=== PATIENT | female | born 1935 | race African-American/Black ===

== ENCOUNTER → 2018-05-30 | Day surgery (SDC) | payer MEDICARE, MEDICAID ==
--- NOTE | 2018-05-30 14:33 | RADIOLOGY REPORT (SQ) ---
EXAM DESCRIPTION: PICC INSERTION; U/S GUIDE FOR VASCULAR ACCESS; FLUORO/CV PLACEMENT COMPLETED DATE/TIME: 05/30/2018 2:16 pm REASON FOR STUDY: INFECT/INFLM REACTION DUE TO INT FIX OF SPINE, SUB; IV ABX T84.63XD INFECT/INFLM REACTION DUE TO INT FIX OF SPINE, SUBS COMPARISON: None. FLUOROSCOPY TIME: 1.1 minute. 1 images saved to PACS. TECHNIQUE: Fluoroscopic and ultrasound guided PICC placement. LIMITATIONS: None. PROCEDURE: After written consent and assessment were obtained, the patient was brought into the fluo roscopy room and placed supine on the table. Ultrasound evaluation of potential access sites were per formed. After successfully identifying a patent left basilic vein, the left arm was prepped and drape d in a sterile fashion along with the ultrasound probe. The entry site was anesthetized with 1% lidoc rakan. A 21 gauge 7 cm needle was advanced through the skin and into the basilic vein under live ultra sound guidance. An ultrasound image was saved to PACS confirming access site. A .018 guide wire was then inserted through the needle and into the venous system. The needle was then removed and an 11 b lade scalpel was used to make a 1cm skin incision. A 5 fr peel-away sheath was advanced over the wir e and into the venous system. A measurement was then made using the existing wire and live fluoroscop ic guidance. The wire was then removed and trimmed. The PICC was advanced through the peel-away sheat h and into the venous system. The peel-away sheath was removed and the catheter was adhered to the pa tients arm with a stat lock. The catheter was then aspirated and flushed and a sterile bandage was pl aced over the access site. A fluoroscopic spot image was saved to PACS confirming the catheter tip w ithin the superior vena cava. IMPRESSION: SUCCESSFUL PLACEMENT OF A 5 FR DUAL LUMEN 40 CM PICC IN THE LEFT BASILIC VEIN. COMMENT: Patient medication list reviewed: Yes- Quality ID# 130:Eligible professional attests to doc umenting in the medical record they obtained, updated, or reviewed the patient's current medications. . Quality ID 145: Final reports for procedures using fluoroscopy that document radiation exposure urban ly, or exposure time and number of fluorographic images (if radiation exposure indices are not avail able) Quality ID #76: The patient was prepped and draped using maximum sterile barrier technique including cap, mask, sterile gown, sterile gloves, a large sterile sheet, hand hygiene, and 2% Chlorhexidine fo r cutaneous antisepsis. When ultrasound is used, sterile ultrasound techniques are followed requiring sterile gel and sterile probes. TECHNICAL DOCUMENTATION: JOB ID: [id number] [employer]- All Rights Reserved rev Reading location - IP/workstation name: [email or web address] [id number]
== END ==
LOC: RAD 12:51
PROVIDERS: ATTEND Family Medicine Geriatric Medicine
DX: T84.63XD Infection and inflammatory reaction due to internal fixation device of spine, subsequent encounter (principal); X58.XXXD Exposure to other specified factors, subsequent encounter
CPT/HCPCS: 36569; 77001; 76937; J1642

== ENCOUNTER 2019-01-02 15:36 | Inpatient (IN) | payer MEDICARE, MEDICAID ==
[2019-01-02 18:13] LABS: ABSOLUTE LYMPHOCYTES (AUTO) 0.5 10^3/uL (0.5-4.7); ABSOLUTE MONOCYTES (AUTO) 0.4 10^3/uL (0.1-1.4); ABSOLUTE NEUT (AUTO) 6.8 10^3/uL (1.7-8.2); BASOPHILS % (AUTO) 0.2 % (0-2); EOSINOPHILS % (AUTO) 0.2 % (0-6); HEMATOCRIT 31.4 % (36.0-47.0); HEMOGLOBIN 10.2 g/dL (12.0-15.5); LYMPHOCYTES % (AUTO) 6.4 % (13-45); MEAN CORPUSCULAR HGB CONC 32.4 g/dL (32.0-36.0); MEAN CORPUSCULAR VOLUME 83 fl (80-97); MONOCYTES % (AUTO) 4.9 % (3-13); PLATELET COUNT 171 10^3/uL (150-450); RED BLOOD COUNT 3.77 10^6/uL (3.72-5.28); RED CELL DISTRIBUTION WIDTH 16.2 % (11.5-14.0); SEGMENTED NEUTROPHILS % (AUTO) 88.3 % (42-78); TOTAL CELLS COUNTED % (AUTO) 100 %; WHITE BLOOD COUNT 7.7 10^3/uL (4.0-10.5)
[2019-01-02 18:14] LABS: ALANINE AMINOTRANSFERASE 28 U/L (9-52); ALBUMIN 3.7 g/dL (3.5-5.0); ALKALINE PHOSPHATASE 157 U/L (38-126); ANION GAP 9 (5-19); ASPARTATE AMINO TRANSFERASE 29 U/L (14-36); BILIRUBIN,DIRECT 0.4 mg/dL (0.0-0.4); BILIRUBIN,TOTAL 0.4 mg/dL (0.2-1.3); BLOOD UREA NITROGEN 19 mg/dL (7-20); CALCIUM 10.1 mg/dL (8.4-10.2); CARBON DIOXIDE 28 mmol/L (22-30); CHLORIDE 103 mmol/L (98-107); GLUCOSE 111 mg/dL (75-110); LIPASE 21.3 U/L (23-300); POTASSIUM 4.5 mmol/L (3.6-5.0); TOTAL PROTEIN 7.1 g/dL (6.3-8.2)
[2019-01-02] MEDS ORDERED: LEVOFLOXACIN 500 MG/D5W RTU 500 MG/100 ML RTUPB IV ONE (18:53)
[2019-01-02] MEDS ORDERED: ONDANSETRON HCL INJ/PF 4 MG/2 ML SDV IV ONE (18:55)
[2019-01-02] MEDS ORDERED: ACETAMINOPHEN 325 MG TABLET PO ONE (18:56)
[2019-01-02] MEDS ORDERED: NORMAL SALINE 500 ML IV ONE (18:56)
[2019-01-02] MEDS ORDERED: MORPHINE SULFATE 10 MG/ML INJ IV ONE ×2 (18:56→20:22)
--- NOTE | 2019-01-02 19:01 | ER Document Report ---
ED General - General Chief Complaint: Flank Pain Stated Complaint: FLANK PAIN Time Seen by Provider: 01/02/19 18:30 Mode of Arrival: Medic Information source: Patient Notes: This is an 83-year-old female with a history of atrial fibrillation, hypertension, diabetes who is brought in by EMS from [facility] for left lower quadrant abdominal pain. Patient is not a good historian. She states she has been having pain for the last day. TRAVEL OUTSIDE OF THE [place] IN LAST 30 DAYS: No - HPI Onset: Just prior to arrival Onset/Duration: Gradual Quality of pain: Dull Severity: Moderate Pain Level: 3 Associated symptoms: Fever. denies: Chest pain, Shortness of breath Exacerbated by: Movement Relieved by: Remaining still Similar symptoms previously: Yes Recently seen / treated by doctor: No - Related Data Allergies/Adverse Reactions: No Known Allergies Allergy (Verified 02/02/14 07:22) Past Medical History - General Information source: Patient, Transfer Record - Social History Smoking Status: Never Smoker Cigarette use (# per day): No Chew tobacco use (# tins/day): No Frequency of alcohol use: None Drug Abuse: None Lives with: Family Family History: Reviewed & Not Pertinent Patient has suicidal ideation: No Patient has homicidal ideation: No - Past Medical History Cardiac Medical History: Reports: Hx Atrial Fibrillation, Hx Hypercholesterolemia, Hx Hypertension Denies: Hx Congestive Heart Failure, Hx Coronary Artery Disease, Hx Heart Attack, Hx Peripheral Vascular Disease, Hx Heart Murmur Pulmonary Medical History: Denies: Hx Asthma, Hx Bronchitis, Hx COPD, Hx Pneumonia, Hx Tuberculosis Neurological Medical History: Reports: Hx Seizures. Denies: Hx Cerebrovascular Accident Endocrine Medical History: Reports: Hx Diabetes Mellitus Type 1, Hx Diabetes Mellitus Type 2. Denies: Hx Graves' Disease, Hx Hyperthyroidism, Hx Hypothyroidism Renal/ Medical History: Reports: Hx Kidney Stones. Denies: Hx End Stage Renal Disease, Hx Ovarian Cysts, Hx Peritoneal Dialysis, Hx Pelvic Inflammatory Disease Malignancy Medical History: Reports: Hx Cervical Cancer. Denies: Hx Breast Cancer, Hx Leukemia, Hx Ovarian Cancer GI Medical History: Reports: Hx Gastroesophageal Reflux Disease, Hx Ulcer. Denies: Hx Crohn's Disease, Hx Hiatal Hernia, Hx Irritable Bowel, Hx Liver Failure, Hx Pancreatitis Musculoskeletal Medical History: Reports Hx Arthritis, Denies Hx Fibromyalgia, Denies Hx Multiple Sclerosis, Denies Hx Muscular Dystrophy Psychiatric Medical History: Denies: Hx Dementia Traumatic Medical History: Reports: Hx Fractures - Left Foot Infectious Medical History: Denies: Hx HIV Past Surgical History: Reports: Hx Cholecystectomy, Hx Hysterectomy, Hx Orthopedic Surgery - l2 - s1, left ankle. Denies: Hx Appendectomy, Hx Bowel Surgery, Hx Section, Hx Colostomy, Hx Coronary Artery Bypass Graft, Hx Gastric Bypass Surgery, Hx Herniorrhaphy, Hx Mastectomy, Hx Pacemaker, Hx Tonsillectomy, Hx Tubal Ligation - Immunizations Hx Diphtheria, Pertussis, Tetanus Vaccination: Yes Review of Systems - Review of Systems Constitutional: denies: Chills, Fever EENT: No symptoms reported Respiratory: No symptoms reported Gastrointestinal: Abdominal pain. denies: Abdomen distended, Diarrhea Genitourinary: No symptoms reported Female Genitourinary: No symptoms reported Musculoskeletal: No symptoms reported Skin: No symptoms reported Hematologic/Lymphatic: No symptoms reported Neurological/Psychological: No symptoms reported Physical Exam - Vital signs Vitals: Temp Pulse Resp BP Pulse Ox 98.9 F 106 H 20 143/76 H 94 01/02/19 15:45 01/02/19 15:45 01/02/19 15:45 01/02/19 15:45 01/02/19 15:45 Notes: Physical exam: GENERAL: Patient is alert and answering questions, she is febrile. HEAD: Atraumatic, normocephalic. EYES: Pupils equal round and reactive to light, extraocular movements intact, sclera anicteric, conjunctiva are normal. ENT: TMs normal, nares patent, oropharynx clear without exudates. Moist mucous membranes. NECK: Normal range of motion, supple without obvious mass or JVD. LUNGS: Breath sounds clear to auscultation bilaterally and equal. No wheezes rales or rhonchi. HEART: Regular rate and rhythm without murmurs, rubs or gallops. ABDOMEN: Soft, normoactive bowel sounds. Patient has a left lower quadrant tenderness. no guarding, no rebound. No masses appreciated. Rectal: Brown stool, soft, heme-negative EXTREMITIES: Normal range of motion, no pitting or edema. No clubbing or cyanosis. NEUROLOGICAL: Cranial nerves II through XII grossly intact. Normal speech, moving all extremities. PSYCH: Normal mood, normal affect. SKIN: Warm, Dry, normal turgor, no rashes or lesions noted. Bedside ultrasound: No hydronephrosis on the right. No identified kidney on the left (patient reports having only one kidney). Course - Re-evaluation Re-evalutation: 01/03/19 01:18 Note: Patient has left lower abdominal pain associated with fever (temperature 102). While the CT shows no obvious perforation or abscess, patient remains significantly tender. She is received IV levofloxacin and IV Flagyl for presumptive diverticulitis. Dr. Graves of surgery was consulted and has seen the patient. The plan will be to admit the patient to the hospitalist service. - Vital Signs Vital signs: Temp Pulse Resp BP Pulse Ox 102.0 F H 106 H 20 135/52 H 95 01/02/19 19:02 01/02/19 15:45 01/02/19 19:25 01/02/19 22:00 01/02/19 23:00 - Laboratory Result Diagrams: 01/02/19 17:00 01/02/19 17:00 Laboratory results interpreted by me: 01/02/19 01/02/19 01/02/19 17:00 17:00 18:45 Hgb 10.2 L Hct 31.4 L RDW 16.2 H Seg Neutrophils % 88.3 H Lymphocytes % 6.4 L Glucose 111 H Alkaline Phosphatase 157 H Lipase 21.3 L Urine Protein 30 H Urine Ketones 20 H Urine Ascorbic Acid 40 H Critical Care Note - Critical Care Note Total time excluding time spent on procedures (mins): 60 Discharge - Discharge Clinical Impression: Diverticulitis Condition: Stable Disposition: ADMITTED INPATIENT Admitting Provider: Nilo (Hospitalist) Unit Admitted: Telemetry
[2019-01-02 19:04] LABS: APPEARANCE,URINE SLIGHTLY-CLOUDY; BILIRUBIN,URINE NEGATIVE (NEGATIVE); COLOR,URINE YELLOW; GLUCOSE, URINE NEGATIVE (NEGATIVE); KETONES,URINE 20 mg/dL (NEGATIVE); LEUKOCYTE ESTERASE,URINE NEGATIVE (NEGATIVE); NITRITE,URINE NEGATIVE (NEGATIVE); PROTEIN,URINE 30 mg/dL (NEGATIVE); URINE SPECIFIC GRAVITY 1.019; UROBILINOGEN,URINE NEGATIVE mg/dL (<2.0)
[2019-01-02 19:08] LABS: PROTHROMBIN TIME 13.7 SEC (11.4-15.4)
[2019-01-02] MEDS ORDERED: METRONIDAZOLE 500 MG/NS RTU 500 MG/100 ML RTUPB IV ONE (19:30)
--- NOTE | 2019-01-02 20:52 | EKG REPORT ---
SEVERITY:- BORDERLINE ECG - SINUS RHYTHM BORDERLINE T ABNORMALITIES, ANTERIOR LEADS : Confirmed by: Brown Albright MD 02-Jan-2019 20:51:36
--- NOTE | 2019-01-02 21:27 | RADIOLOGY REPORT (SQ) ---
XR CHEST 1 VIEW HISTORY: Fever. Chest pain. COMPARISON: 03/14/2015 FINDINGS: The heart size is mildly enlarged. No consolidation, pleural effusion, or pneumothorax is seen. Left lung base atelectasis. There are no acute bony findings. IMPRESSION: No evidence of acute cardiopulmonary disease.
--- NOTE | 2019-01-02 22:50 | RADIOLOGY REPORT (SQ) ---
EXAM DESCRIPTION: CT ABDOMEN PELVIS WITH IV CONTRAST COMPLETED DATE/TME: 01/02/2019 00:00 CLINICAL HISTORY: 83 years Female, left abd pain Comparison: None. Technique: IV and oral contrast. Coronal and sagittal reformat. This exam was performed according to our departmental dose-optimization program, which includes automated exposure control, adjustment of the mA and/or kV according to patient size and/or use of iterative reconstruction technique. [facility]: Dose Right [facility]: CareDose [facility]: Dose Right [facility]: Teradose 4D [facility]: RightPath Payments LIMITATIONS: None Findings: 4.8 cm prostate. Left kidney is absent/resected. Atelectasis/scar. Coronary arterial calcification. Atherosclerotic vascular disease. L4-S1 posterior hardware fusion. Left L3 posterior pedicle screw fusion. Bone demineralization. Appendectomy. Uterus not discerned which may indicate prior hysterectomy. Cholecystectomy. 0.9 cm diameter with the common bile duct. Prominence of the intrahepatic ductal system. Stool retention. No ascites. No pneumoperitoneum. No bowel obstruction. No evidence of abdominal aortic aneurysm. Inferior thorax, liver, pancreas, spleen, adrenals, right kidney, gastrointestinal tract, pelvic organs, lymphatics, vasculature, and musculoskeleton appear otherwise unremarkable. IMPRESSION: No acute findings.
--- NOTE | 2019-01-03 00:20 | PDOC CONSULTATION ---
Consultation Consult Date: 01/02/19 Consult reason:: LLQ pains History of Present Illness Admission Date/PCP: COLLINS YUAN MD History of Present Illness: RAHUL SHELBY is a 83 year old female with history of hysterectomy for Ca, 8 back operations, left kidney stone operation, and remote history of diverticulitis started c/o dull LLQ pains radiating to the back past 3-4 weeks. She has afever of 102 in the ED Has constipation and takes laxatives periodically. Her pains are gradually getting worse which prompted her to go to the ED from a [place]. She had a CT scan of abd/pelvis which was red as no acute findings. She is used to taking pain medications for her back and kidney stones.Denies any vomiting but has some nausea. Also has poor appetite. Denies dysuria. Last BM about a week ago. Denies vaginal discharge Past Medical History Cardiac Medical History: Reports: Atrial Fibrillation, Hyperlipidema, Hypertension Denies: Congestive Heart Failure, Coronary Artery Disease, Myocardial Infarction, Peripheral Vascular Disease, Heart Murmur Pulmonary Medical History: Denies: Asthma, Bronchitis, Chronic Obstructive Pulmonary Disease (COPD), Pneumonia, Tuberculosis Neurological Medical History: Reports: Seizures Endocrine Medical History: Reports: Diabetes Mellitus Type 1, Diabetes Mellitus Type 2 Denies: Hyperthyroidism, Hypothyroidism Renal/ Medical History: Denies: End Stage Renal Disease Malignancy Medical History: Reports: Cervical Cancer Denies: Breast Cancer, Leukemia, Ovarian Cancer GI Medical History: Reports: Gastroesophageal Reflux Disease Denies: Crohn's Disease, Hiatal Hernia Musculoskeltal Medical History: Reports: Arthritis Denies: Fibromyalgia Psychiatric Medical History: Denies: Dementia Hematology: Reports: Anemia Denies: Hemophilia, Sickle Cell Disease Infectious Medical History: Denies: HIV Past Surgical History Past Surgical History: Reports: Cholecystectomy, Hysterectomy, Orthopedic Surgery - l2 - s1, left ankle Denies: Amputation, Appendectomy, Section, Colostomy, Coronary Artery Bypass Graft, Gastric Bypass Surgery, Herniorrhaphy, Mastectomy, Pacemaker, Tonsillectomy, Tubal Ligation Social History Smoking Status: Never Smoker Frequency of Alcohol Use: None Hx Recreational Drug Use: Yes Hx Prescription Drug Abuse: No Family History Family History: Reviewed & Not Pertinent Parental Family History Reviewed: Yes Children Family History Reviewed: No Sibling(s) Family History Reviewed.: No Medication/Allergy Home Medications: Atorvastatin Calcium [Lipitor 20 mg Tablet] 20 mg PO QHS 05/27/14 Cholecalciferol (Vitamin D3) [Vitamin D3 400 Unit Tablet] 400 units PO DAILY 02/02/14 Donepezil HCl 5 mg PO QHS 02/02/14 Levothyroxine Sodium [Levoxyl] 37.5 mg PO QAM 02/02/14 Magnesium Oxide [Magnesium] 400 mg PO DAILY 02/02/14 Multivitamin [Animal Shapes Vitamins] 1 tab PO DAILY 02/02/14 Pantoprazole Sodium [Protonix] 40 mg PO DAILY 02/02/14 Pregabalin [Lyrica 100 mg Capsule] 150 mg PO Q8H 02/02/14 Sennosides/Docusate 8.6-50 mg [Senna Plus Tablet] 1 tab PO Q12H 02/02/14 Acetaminophen [Tylenol] 1,000 mg PO Q8 PRN 03/14/15 Amlodipine Besylate [Norvasc 5 mg Tablet] 5 mg PO DAILY 03/14/15 Calcium Carbonate/Vitamin D3 [Calcium 600 + Vit D 400 Tablet] 1 tab PO DAILY 03/14/15 Citalopram Hydrobromide [Celexa 10 mg Tablet] 10 mg PO DAILY 03/14/15 Cyanocobalamin (Vitamin B-12) [Vitamin B-12] 1,000 mcg PO DAILY 03/14/15 Epoetin Roman [Procrit Inj 20,000 Unit/1 ml Vial (Renal)] 40,000 units SUBCUT [id number] 03/14/15 Hydromorphone HCl [Dilaudid 2 mg Tablet] 2 mg PO Q3 PRN 03/14/15 Lactulose 7.5 ml PO DAILY 03/14/15 Menthol [Bengay] 1 dose TOP Q6 PRN 03/14/15 Mometasone Furoate [Nasonex] 50 mcg NS DAILY 03/14/15 Sulfamethoxazole/Trimethoprim [Bactrim Ds Tablet] 1 tab PO Q12 03/14/15 Warfarin Sodium [Coumadin 2.5 mg Tablet] 1 tab PO MOWEFR 03/14/15 Warfarin Sodium [Coumadin 3 mg Tablet] 3 mg PO MOWEFR 03/14/15 Warfarin Sodium [Coumadin 5 mg Tablet] 5 mg PO SUTUTHSA 03/14/15 Ertapenem Sodium [Invanz Inj 1 gm Vial] 1 gm IM DAILY #7 vial 03/21/15 Allergies/Adverse Reactions: No Known Allergies Allergy (Verified 02/02/14 07:22) Review of Systems Constitutional: PRESENT: as per HPI Ears: PRESENT: other - no visual/hearing changes Cardiovascular: PRESENT: other - no chest pains/cough Gastrointestinal: PRESENT: abdominal pain, constipation, nausea Genitourinary: PRESENT: other - no dysuria Musculoskeletal: PRESENT: back pain Neurological: PRESENT: numbness - pains radiating to left leg yesterday Physical Exam Vital Signs: Temp Pulse Resp BP Pulse Ox 102.0 F H 106 H 20 135/52 H 95 01/02/19 19:02 01/02/19 15:45 01/02/19 19:25 01/02/19 22:00 01/02/19 23:00 Intake & Output 01/01/19 01/02/19 01/03/19 06:59 06:59 06:59 Intake Total 700 Balance 700 Weight 90 kg General appearance: PRESENT: severe distress Head exam: PRESENT: atraumatic Eye exam: PRESENT: conjunctiva pink Mouth exam: PRESENT: moist Neck exam: PRESENT: full ROM Respiratory exam: PRESENT: clear to auscultation cristina Cardiovascular exam: PRESENT: RRR Pulses: PRESENT: normal radial pulses Vascular exam: PRESENT: normal capillary refill GI/Abdominal exam: PRESENT: soft, tenderness - LLQ Rectal exam: PRESENT: deferred Musculoskeletal exam: PRESENT: ambulatory - with a cane Neurological exam: PRESENT: alert, oriented to person, oriented to place, oriented to time, oriented to situation Psychiatric exam: PRESENT: appropriate affect Results Laboratory Results: 01/02/19 17:00 01/02/19 17:00 01/02/19 01/02/19 01/02/19 17:00 17:00 18:45 WBC 7.7 RBC 3.77 Hgb 10.2 L Hct 31.4 L MCV 83 MCH 27.0 MCHC 32.4 RDW 16.2 H Plt Count 171 Seg Neutrophils % 88.3 H Lymphocytes % 6.4 L Monocytes % 4.9 Eosinophils % 0.2 Basophils % 0.2 Absolute Neutrophils 6.8 Absolute Lymphocytes 0.5 Absolute Monocytes 0.4 Absolute Eosinophils 0.0 Absolute Basophils 0.0 Sodium 140.0 Potassium 4.5 Chloride 103 Carbon Dioxide 28 Anion Gap 9 BUN 19 Creatinine 0.68 Est GFR ( Amer) > 60 Est GFR (Non-Af Amer) > 60 Glucose 111 H Calcium 10.1 Total Bilirubin 0.4 AST 29 ALT 28 Alkaline Phosphatase 157 H Total Protein 7.1 Albumin 3.7 Lipase 21.3 L Urine Color YELLOW Urine Appearance SLIGHTLY-CLOUDY Urine pH 5.0 Ur Specific [place] 1.019 Urine Protein 30 H Urine Glucose (UA) NEGATIVE Urine Ketones 20 H Urine Blood NEGATIVE Urine Nitrite NEGATIVE Ur Leukocyte Esterase NEGATIVE Urine WBC (Auto) 5 Urine RBC (Auto) 1 Impressions: Abdomen/Pelvis CT 01/02/19 00:00 IMPRESSION: No acute findings. Chest X-Ray 01/02/19 20:16 IMPRESSION: No evidence of acute cardiopulmonary disease. Assessment & Plan - Diagnosis (1) Left Lower quadant pains radiating to th Is this a current diagnosis for this admission?: Yes - Time Time Spent: 30 to 50 Minutes - Inpatient Certification Medical Necessity: Need for Pain Control, Need for IV Antibiotics - Plan Summary Plan Summary: 83 yo female with LLQ pains radiating to the back past 3 weeks and getting worse and tonight associated with fever of 102. Has constipation. Claims had remote history of diverticulitis -32 years ago and treated by PMD with antibiotics. Had about 8 back operations, hysterectomy for Ca and left flank operations x2 for kidney stones. She has been on chronic pain medications with Tramadol and Oxycodone for her back prescribed by her PMD. She is tender in the LLQ but no acute changes on CT scan. Has a very small incisional/umbilical hernia that is non tender..She has a fever with a left shift on WBC. Impression: Can't definitely R/O acute diverticulitis despite normal CT scan. I think there is some pain medication gain at this point but with the fever and slight left shift on her WBC would give IV antibiotics for a likely starting diverticulitis. Will be available for any questions.
[2019-01-03] MEDS ORDERED: IPRATROPIUM/ALBUTEROL 0.5-2.5 MG/3 ML AMPUL NEB PRN (00:40)
[2019-01-03] MEDS ORDERED: MAG HYDROX/AL HYDROX/SIMETH SUSP 30 ML UDCUP PO PRN (00:40)
[2019-01-03] MEDS ORDERED: LACTULOSE SYRUP 20 GM/30 ML UDCUP PO ONE (00:40)
[2019-01-03] MEDS ORDERED: NORMAL SALINE 1000 ML 1,000 ML IV SCH (00:45)
[2019-01-03] MEDS: ACETAMINOPHEN 325 MG TABLET PO PRN ×5 (02:41→20:11)
--- NOTE | 2019-01-03 05:29 | PDOC H&P ---
History of Present Illness Admission Date/PCP: 01/03/19 00:48 COLLINS YUAN MD Patient complains of: Left-sided abdominal pain History of Present Illness: RAHUL SHELBY is a 83 year old female custodial resident with a past medical history of dementia, atrial fibrillation, hypertension, diabetes and opiate dependent chronic pain with constipation. Patient is a very poor historian but admits to dull left lower quadrant pain for at least 24 hours associated with constipation. In the emergency room she is found to have a fever of 102 without leukocytosis or acidosis, CT abdomen suggestive of constipation without obstruction, colitis or diverticulitis. She started on empiric antibiotics for diverticulitis and referred to the hospitalist for admission. Patient is unable to provide meaningful history but is socially appropriate. Past Medical History Cardiac Medical History: Reports: Atrial Fibrillation, Hyperlipidema, Hypertension Denies: Congestive Heart Failure, Coronary Artery Disease, Myocardial In farction, Peripheral Vascular Disease, Heart Murmur Pulmonary Medical History: Denies: Asthma, Bronchitis, Chronic Obstructive Pulmonary Disease (COPD), Pneumonia, Tuberculosis Neurological Medical History: Reports: Seizures Endocrine Medical History: Reports: Diabetes Mellitus Type 1, Diabetes Mellitus Type 2 Denies: Hyperthyroidism, Hypothyroidism Renal/ Medical History: Denies: End Stage Renal Disease Malignancy Medical History: Reports: Cervical Cancer Denies: Breast Cancer, Leukemia, Ovarian Cancer GI Medical History: Reports: Gastroesophageal Reflux Disease Denies: Crohn's Disease, Hiatal Hernia Musculoskeltal Medical History: Reports: Arthritis Denies: Fibromyalgia Psychiatric Medical History: Denies: Dementia Hematology: Reports: Anemia Denies: Hemophilia, Sickle Cell Disease Infectious Medical History: Denies: HIV Past Surgical History Past Surgical History: Reports: Cholecystectomy, Hysterectomy, Orthopedic Surgery - l2 - s1, left ankle Denies: Amputation, Appendectomy, Section, Colostomy, Coronary Artery Bypass Graft, Gastric Bypass Surgery, Herniorrhaphy, Mastectomy, Pacemaker, Tonsillectomy, Tubal Ligation Social History Information Source: Patient, Emergency Med Personnel, [facility] Records Lives with: Family Smoking Status: Never Smoker Frequency of Alcohol Use: None Hx Recreational Drug Use: Yes Hx Prescription Drug Abuse: No - Advance Directive Resuscitation Status: Full Code Family History Family History: Other - Unobtainable Parental Family History Reviewed: No - Unobtainable Children Family History Reviewed: No - Unobtainable Sibling(s) Family History Reviewed.: No - Unobtainable Medication/Allergy Home Medications: Atorvastatin Calcium [Lipitor 20 mg Tablet] 20 mg PO QHS 02/02/14 Cholecalciferol (Vitamin D3) [Vitamin D3 400 Unit Tablet] 400 units PO DAILY 02/02/14 Donepezil HCl 5 mg PO QHS 02/02/14 Levothyroxine Sodium [Levoxyl] 37.5 mg PO QAM 02/02/14 Magnesium Oxide [Magnesium] 400 mg PO DAILY 02/02/14 Multivitamin [Animal Shapes Vitamins] 1 tab PO DAILY 02/02/14 Pantoprazole Sodium [Protonix] 40 mg PO DAILY 02/02/14 Pregabalin [Lyrica 100 mg Capsule] 150 mg PO Q8H 02/02/14 Sennosides/Docusate 8.6-50 mg [Senna Plus Tablet] 1 tab PO Q12H 02/02/14 Acetaminophen [Tylenol] 1,000 mg PO Q8 PRN 03/14/15 Amlodipine Besylate [Norvasc 5 mg Tablet] 5 mg PO DAILY 03/14/15 Calcium Carbonate/Vitamin D3 [Calcium 600 + Vit D 400 Tablet] 1 tab PO DAILY 03/14/15 Citalopram Hydrobromide [Celexa 10 mg Tablet] 10 mg PO DAILY 03/14/15 Cyanocobalamin (Vitamin B-12) [Vitamin B-12] 1,000 mcg PO DAILY 03/14/15 Epoetin Roman [Procrit Inj 20,000 Unit/1 ml Vial (Renal)] 40,000 units SUBCUT [id number] 03/14/15 Hydromorphone HCl [Dilaudid 2 mg Tablet] 2 mg PO Q3 PRN 03/14/15 Lactulose 7.5 ml PO DAILY 03/14/15 Menthol [Bengay] 1 dose TOP Q6 PRN 03/14/15 Mometasone Furoate [Nasonex] 50 mcg NS DAILY 03/14/15 Sulfamethoxazole/Trimethoprim [Bactrim Ds Tablet] 1 tab PO Q12 03/14/15 Warfarin Sodium [Coumadin 2.5 mg Tablet] 1 tab PO MOWEFR 03/14/15 Warfarin Sodium [Coumadin 3 mg Tablet] 3 mg PO MOWEFR 03/14/15 Warfarin Sodium [Coumadin 5 mg Tablet] 5 mg PO SUTUTHSA 03/14/15 Ertapenem Sodium [Invanz Inj 1 gm Vial] 1 gm IM DAILY #7 vial 03/21/15 Allergies/Adverse Reactions: No Known Allergies Allergy (Verified 02/02/14 07:22) Review of Systems ROS unobtainable: Due to mental status - Dementia Physical Exam Vital Signs: Temp Pulse Resp BP Pulse Ox 98.9 F 83 20 132/55 H 96 01/03/19 01:00 01/03/19 01:43 01/03/19 01:00 01/03/19 01:28 01/03/19 01:28 Intake & Output 01/01/19 01/02/19 01/03/19 11:59 11:59 11:59 Intake Total 700 Balance 700 Weight 90 kg General appearance: PRESENT: cooperative, mild distress, obese. ABSENT: hard of hearing Head exam: PRESENT: atraumatic, normocephalic Eye exam: PRESENT: conjunctiva pink, EOMI, PERRLA. ABSENT: scleral icterus Ear exam: PRESENT: normal external ear exam Mouth exam: PRESENT: moist, tongue midline Neck exam: ABSENT: carotid bruit, JVD, lymphadenopathy, thyromegaly Respiratory exam: PRESENT: clear to auscultation cristina. ABSENT: rales, rhonchi, wheezes Cardiovascular exam: PRESENT: irregular rhythm. ABSENT: diastolic murmur, rubs, systolic murmur Pulses: PRESENT: normal dorsalis pedis pul Vascular exam: PRESENT: normal capillary refill GI/Abdominal exam: PRESENT: diminished bowel sounds, distended, hypoactive bowel sounds, soft, tenderness. ABSENT: ascites, firm, guarding, hernia, Shaw's sign, normal bowel sounds, organolmegaly, rebound Rectal exam: PRESENT: deferred Extremities exam: PRESENT: full ROM. ABSENT: calf tenderness, clubbing, pedal edema Neurological exam: PRESENT: alert, awake, oriented to person, oriented to place, oriented to time, oriented to situation, CN II-XII grossly intact. ABSENT: motor sensory deficit Psychiatric exam: PRESENT: appropriate affect, normal mood. ABSENT: homicidal ideation, suicidal ideation Skin exam: PRESENT: dry, intact, warm. ABSENT: cyanosis, rash Results Laboratory Results: 01/02/19 17:00 01/02/19 17:00 01/02/19 01/02/19 01/02/19 17:00 17:00 18:45 WBC 7.7 RBC 3.77 Hgb 10.2 L Hct 31.4 L MCV 83 MCH 27.0 MCHC 32.4 RDW 16.2 H Plt Count 171 Seg Neutrophils % 88.3 H Lymphocytes % 6.4 L Monocytes % 4.9 Eosinophils % 0.2 Basophils % 0.2 Absolute Neutrophils 6.8 Absolute Lymphocytes 0.5 Absolute Monocytes 0.4 Absolute Eosinophils 0.0 Absolute Basophils 0.0 Sodium 140.0 Potassium 4.5 Chloride 103 Carbon Dioxide 28 Anion Gap 9 BUN 19 Creatinine 0.68 Est GFR ( Amer) > 60 Est GFR (Non-Af Amer) > 60 Glucose 111 H Calcium 10.1 Total Bilirubin 0.4 AST 29 ALT 28 Alkaline Phosphatase 157 H Total Protein 7.1 Albumin 3.7 Lipase 21.3 L Urine Color YELLOW Urine Appearance SLIGHTLY-CLOUDY Urine pH 5.0 Ur Specific [place] 1.019 Urine Protein 30 H Urine Glucose (UA) NEGATIVE Urine Ketones 20 H Urine Blood NEGATIVE Urine Nitrite NEGATIVE Ur Leukocyte Esterase NEGATIVE Urine WBC (Auto) 5 Urine RBC (Auto) 1 Impressions: Abdomen/Pelvis CT 01/02/19 00:00 IMPRESSION: No acute findings. Chest X-Ray 01/02/19 20:16 IMPRESSION: No evidence of acute cardiopulmonary disease. Assessment and Plan - Diagnosis (1) Left Lower quadant pains radiating to th Is this a current diagnosis for this admission?: Yes Plan: Complicated by diabetes, fever, constipation, dementia and without clear source. Will treat empirically for diverticulitis. Follow-up CBC (2) Diverticulitis Is this a current diagnosis for this admission?: Yes Plan: Most likely explanation for fever and left lower quadrant pain with constipa tion. Trial of clear liquids with Flagyl and Levaquin. Follow-up CBC (3) Atrial fibrillation Is this a current diagnosis for this admission?: Yes Plan: Rate controlled continue outpatient regiment - Time Time Spent with patient: 35 or more minutes - Inpatient Certification Medical Necessity: Need Close Monitoring Due to Risk of Patient Decompensation
[2019-01-03] MEDS: HEPARIN SOD (PORCINE) 5,000 UNIT/ML 1 ML SYRINGE SUBCUT SCH ×3 (05:35→21:27)
[2019-01-03] MEDS ORDERED: METRONIDAZOLE 500 MG TABLET ONE (05:56)
[2019-01-03] MEDS: METRONIDAZOLE 500 MG TABLET PO SCH ×3 (06:02→17:12)
[2019-01-03] MEDS: NORMAL SALINE 1000 ML 1,000 ML IV PRN ×2 (06:02→10:38)
--- NOTE | 2019-01-03 17:59 | Progress Note ---
Provider Note Provider Note: RAHUL SHELBY is a 83 year old female jail resident with a past medical history of dementia, atrial fibrillation, hypertension, diabetes and opiate dependent chronic pain with constipation who was admitted early this morning by the Shell Reprint Operator for diverticulitis. Overnight events, vital signs, laboratory and imaging results reviewed. Agree with the plan of care as established by the previous provider. I did speak with the patient's daughter by phone, Ms. Julio ([phone]); she appreciates the care the patient has received thus far and confirms that her mother is a full code. Continue empiric IV Flagyl and Levaquin for treatment of diverticulitis. Continue gentle IV fluids, antiemetics and analgesics as needed. I resume the patient's home dose metoprolol. Lactulose for constipation. Subcu heparin for DVT prophylaxis.
[2019-01-03] MEDS ORDERED: LEVOFLOXACIN 750 MG/D5W RTU 750 MG/150 ML RTUPB IV SCH (18:00)
[2019-01-03] MEDS: LACTULOSE SYRUP 20 GM/30 ML UDCUP PO SCH (21:27)
[2019-01-04] MEDS: ACETAMINOPHEN 325 MG TABLET PO PRN ×5 (00:13→20:31)
[2019-01-04] MEDS: METRONIDAZOLE 500 MG TABLET PO SCH ×4 (00:13→17:10)
[2019-01-04] MEDS: HEPARIN SOD (PORCINE) 5,000 UNIT/ML 1 ML SYRINGE SUBCUT SCH ×3 (05:11→21:48)
[2019-01-04 06:07] LABS: ABSOLUTE LYMPHOCYTES (AUTO) 0.6 10^3/uL (0.5-4.7); ABSOLUTE MONOCYTES (AUTO) 0.7 10^3/uL (0.1-1.4); ABSOLUTE NEUT (AUTO) 3.8 10^3/uL (1.7-8.2); BASOPHILS % (AUTO) 0.3 % (0-2); EOSINOPHILS % (AUTO) 0.5 % (0-6); HEMATOCRIT 28.2 % (36.0-47.0); HEMOGLOBIN 9.3 g/dL (12.0-15.5); LYMPHOCYTES % (AUTO) 12.6 % (13-45); MEAN CORPUSCULAR HEMOGLOBIN 27.3 pg (27.0-33.4); MEAN CORPUSCULAR HGB CONC 33.1 g/dL (32.0-36.0); MEAN CORPUSCULAR VOLUME 82 fl (80-97); MONOCYTES % (AUTO) 12.8 % (3-13); PLATELET COUNT 153 10^3/uL (150-450); RED BLOOD COUNT 3.43 10^6/uL (3.72-5.28); SEGMENTED NEUTROPHILS % (AUTO) 73.8 % (42-78); TOTAL CELLS COUNTED % (AUTO) 100 %; WHITE BLOOD COUNT 5.2 10^3/uL (4.0-10.5)
[2019-01-04 06:23] LABS: ANION GAP 12 (5-19); BLOOD UREA NITROGEN 12 mg/dL (7-20); CALCIUM 9.7 mg/dL (8.4-10.2); CARBON DIOXIDE 23 mmol/L (22-30); CHLORIDE 105 mmol/L (98-107); GLUCOSE 94 mg/dL (75-110); SODIUM 140.2 mmol/L (137-145)
[2019-01-04] MEDS: METOPROLOL SUCCINATE 25 MG TAB.SR.24H PO SCH (09:52)
--- NOTE | 2019-01-04 11:57 | PDOC PROGRESS REPORT ---
Subjective Progress Note for:: 01/04/19 Subjective:: RAHUL SHELBY is a 83 year old female assisted resident with a past medical history of dementia, atrial fibrillation, hypertension, diabetes and opiate dependent chronic pain with constipation who was admitted early this morning by the Refinery Superintendent for diverticulitis. The patient was seen on morning rounds. She was found resting in bed comfortably. She was oriented to self, place, socially and conversationally appropriate. She reports that her only pain at present is left pelvic, hip, lower back pain that she relates to a fall a few months ago. She states that the pain is progressively worsened since that time. She cannot recall if she has had imaging studies done. Otherwise she denies fever, chills, chest pain, palpitations, dyspnea, orthopnea, cough, abdominal pain, nausea and vomiting. She requests increased pain medications but otherwise has no questions or concerns at this time. No concerns per nursing. Reason For Visit: DIVERTICULITIS ABD PAIN Physical Exam Vital Signs: Temp Pulse Resp BP Pulse Ox 98.8 F 81 14 150/60 H 93 01/04/19 07:46 01/04/19 09:52 01/04/19 09:52 01/04/19 07:46 01/04/19 09:52 Intake & Output 01/03/19 01/04/19 01/05/19 06:59 06:59 06:59 Intake Total 700 2538 Output Total 2 Balance 700 2536 Weight 85.8 kg 86 kg General appearance: PRESENT: no acute distress, obese, well-developed, well- nourished Head exam: PRESENT: atraumatic, normocephalic Eye exam: PRESENT: conjunctiva pink, EOMI, PERRLA. ABSENT: scleral icterus Mouth exam: PRESENT: moist, tongue midline Neck exam: ABSENT: carotid bruit, JVD, lymphadenopathy, thyromegaly Respiratory exam: PRESENT: clear to auscultation cristina, decreased breath sounds - Bibasilar, symmetrical, unlabored. ABSENT: rales, rhonchi, wheezes Cardiovascular exam: PRESENT: irregular rhythm, +S1, +S2. ABSENT: diastolic murmur, rubs, systolic murmur Pulses: PRESENT: normal dorsalis pedis pul Vascular exam: PRESENT: normal capillary refill GI/Abdominal exam: PRESENT: normal bowel sounds, soft. ABSENT: distended, guarding, mass, organolmegaly, rebound, tenderness Rectal exam: PRESENT: deferred Extremities exam: PRESENT: tenderness - Left hip and lower back discomfort. ABSENT: calf tenderness, clubbing, pedal edema Neurological exam: PRESENT: alert, awake, oriented to person, oriented to place, CN II-XII grossly intact, other - Forgetful, socially appropriate. ABSENT: oriented to time, oriented to situation, motor sensory deficit Psychiatric exam: PRESENT: appropriate affect, normal mood. ABSENT: homicidal ideation, suicidal ideation Skin exam: PRESENT: dry, intact, warm. ABSENT: cyanosis, rash Results Laboratory Results: 01/04/19 05:14 01/04/19 05:14 01/04/19 01/04/19 05:14 05:14 WBC 5.2 RBC 3.43 L Hgb 9.3 L Hct 28.2 L MCV 82 MCH 27.3 MCHC 33.1 RDW 16.0 H Plt Count 153 Seg Neutrophils % 73.8 Lymphocytes % 12.6 L Monocytes % 12.8 Eosinophils % 0.5 Basophils % 0.3 Absolute Neutrophils 3.8 Absolute Lymphocytes 0.6 Absolute Monocytes 0.7 Absolute Eosinophils 0.0 Absolute Basophils 0.0 Sodium 140.2 Potassium 4.0 Chloride 105 Carbon Dioxide 23 Anion Gap 12 BUN 12 Creatinine 0.57 Est GFR ( Amer) > 60 Est GFR (Non-Af Amer) > 60 Glucose 94 Calcium 9.7 Impressions: Abdomen/Pelvis CT 01/02/19 00:00 IMPRESSION: No acute findings. Chest X-Ray 01/02/19 20:16 IMPRESSION: No evidence of acute cardiopulmonary disease. Assessment and Plan - Diagnosis (1) Diverticulitis Is this a current diagnosis for this admission?: Yes Plan: The patient is admitted to the medical floor on continuous cardiac telemetry. She provided gentle IV fluids. On a clear liquid diet; advance as tolerated. Empirically placed on p.o. Cipro and flagyl. Antiemetics and anagesics as needed. (2) Left Lower quadant pains radiating to th Is this a current diagnosis for this admission?: Yes Plan: Complicated by diabetes, fever, constipation, dementia and without clear source. Will treat empirically for diverticulitis. Manage constipation. Evaluate pelvic/hip pain from fall several weeks ago. (3) Atrial fibrillation Is this a current diagnosis for this admission?: Yes Plan: Rate controlled continue outpatient regiment. Patient is too high of risk for chronic anticoagulation. Telemetry monitoring. (4) Hip pain Qualifiers: Laterality: left Qualified Code(s): M25.552 - Pain in left hip Is this a current diagnosis for this admission?: Yes Plan: Secondary to fall from a few weeks ago; patient is unclear on exact date (told cedric jennings 2-3 weeks, told me about 5). Can't recall if she had imaging studies done. CT ABD/Pelvis did not reveal abnormal findings. Will obtain lumbar, pelvic, and left hip xray. Lidoderm patches and tramadol for pain. Avoid narcotics secondary to constipation. (5) Constipation Is this a current diagnosis for this admission?: Yes Plan: Appears to be chronic in nature; likely opiate induced. She uses twice daily MiraLAX, twice daily senna, for management as an outpatient. We will resume her home medication regiment in addition to lactulose nightly as needed. - Time Time Spent with patient: 25-34 minutes Medications reviewed and adjusted accordingly: Yes Anticipated discharge: SNF Within: within 48 hours
[2019-01-04] MEDS: TRAMADOL HCL 50 MG TABLET PO PRN ×3 (12:08→21:44)
--- NOTE | 2019-01-04 14:14 | RADIOLOGY REPORT (SQ) ---
EXAM DESCRIPTION: L SPINE WHOLE COMPLETED DATE/TIME: 01/04/2019 2:00 pm REASON FOR STUDY: low back pain s/p fall COMPARISON: None. NUMBER OF VIEWS: Five views including obliques. TECHNIQUE: AP, lateral, oblique, and sacral radiographic images acquired of the lumbar spine. LIMITATIONS: None. FINDINGS: MINERALIZATION: Normal. SEGMENTATION: Normal. No transitional anatomy. ALIGNMENT: Normal. VERTEBRAE: Maintained height. No fracture or worrisome bone lesion. DISCS: Preserved height. No significant osteophytes or end plate irregularity. POSTERIOR ELEMENTS: Posterior fusion. Laminectomy. HARDWARE: Posterior hardware. PARASPINAL SOFT TISSUES: Normal. PELVIS: Intact as visualized. No fractures or worrisome bone lesions. SI joints intact. OTHER: No other significant finding. IMPRESSION: SURGICAL CHANGES WITH POSTERIOR FUSION, LAMINECTOMY, AND HARDWARE. NO ACUTE FINDINGS. TECHNICAL DOCUMENTATION: JOB ID: [id number] [employer]- All Rights Reserved Reading location - IP/workstation name: [email or web address]
--- NOTE | 2019-01-04 14:17 | RADIOLOGY REPORT (SQ) ---
EXAM DESCRIPTION: HIP LEFT AP/LATERAL COMPLETED DATE/TIME: 01/04/2019 2:00 pm REASON FOR STUDY: pelvic/lt hip pain s/p fall COMPARISON: None. NUMBER OF VIEWS: Two views. TECHNIQUE: AP pelvis and additional frog-leg view of the left hip. LIMITATIONS: None. FINDINGS: MINERALIZATION: Normal. LEFT HIP: No fracture or dislocation. No worrisome bone lesions. RIGHT HIP: No fracture or dislocation. No worrisome bone lesions. PUBIS AND ISCHIUM: No fracture. PELVIS: No fracture. SACRUM: No fracture or dislocation. No worrisome bone lesions. LOWER LUMBAR SPINE: Surgical changes and hardware. SOFT TISSUES: No findings. OTHER: No other significant finding. IMPRESSION: NEGATIVE STUDY OF THE LEFT HIP AND PELVIS. NO RADIOGRAPHIC EVIDENCE OF ACUTE INJURY. TECHNICAL DOCUMENTATION: JOB ID: [id number] [employer]- All Rights Reserved Reading location - IP/workstation name: [email or web address]
[2019-01-04] MEDS: GABAPENTIN 100 MG CAPSULE PO SCH ×2 (14:20→21:47)
[2019-01-04] MEDS: POLYETHYLENE GLYCOL 3350 POWDER 17 GM/1 PACKET PO SCH (17:10)
[2019-01-04] MEDS: CIPROFLOXACIN HCL 750 MG TABLET PO SCH (21:45)
[2019-01-04] MEDS: ATORVASTATIN CALCIUM 20 MG TABLET PO SCH (21:46)
[2019-01-04] MEDS: TAMSULOSIN HCL 0.4 MG CAP.SR.24H PO SCH (21:46)
[2019-01-04] MEDS: LACTULOSE SYRUP 20 GM/30 ML UDCUP PO SCH (21:47)
[2019-01-05] MEDS: ACETAMINOPHEN 325 MG TABLET PO PRN (00:41)
[2019-01-05] MEDS: METRONIDAZOLE 500 MG TABLET PO SCH ×5 (00:42→23:47)
[2019-01-05] MEDS: TRAMADOL HCL 50 MG TABLET PO PRN ×4 (03:33→23:46)
[2019-01-05 04:25] LABS: HEMATOCRIT 28.8 % (36.0-47.0); HEMOGLOBIN 9.5 g/dL (12.0-15.5); MEAN CORPUSCULAR HGB CONC 32.9 g/dL (32.0-36.0); MEAN CORPUSCULAR VOLUME 82 fl (80-97); PLATELET COUNT 171 10^3/uL (150-450); RED BLOOD COUNT 3.51 10^6/uL (3.72-5.28); RED CELL DISTRIBUTION WIDTH 16.1 % (11.5-14.0)
[2019-01-05] MEDS: GABAPENTIN 100 MG CAPSULE PO SCH ×3 (05:44→21:11)
[2019-01-05] MEDS: PANTOPRAZOLE SODIUM 40 MG TABLET.DR PO SCH (05:45)
[2019-01-05] MEDS: HEPARIN SOD (PORCINE) 5,000 UNIT/ML 1 ML SYRINGE SUBCUT SCH ×3 (05:45→21:10)
[2019-01-05] MEDS: POLYETHYLENE GLYCOL 3350 POWDER 17 GM/1 PACKET PO SCH ×3 (09:15→17:28)
[2019-01-05] MEDS: DULOXETINE HCL 30 MG CAPSULE.DR PO SCH (09:19)
[2019-01-05] MEDS: FERROUS SULFATE 325 MG TABLET PO SCH (09:20)
[2019-01-05] MEDS: METOPROLOL SUCCINATE 25 MG TAB.SR.24H PO SCH (09:20)
[2019-01-05] MEDS: CIPROFLOXACIN HCL 750 MG TABLET PO SCH ×2 (09:22→17:25)
--- NOTE | 2019-01-05 12:49 | PDOC TRANSFER SUMMARY ---
Addendum entered and electronically signed by MINDA KLEIN NP-C 01/16/19 21:16: Provider Note Provider Note: Addendum: Patient has a Hx of PAF; rate controlled on metoprolol. Patient noted to be in NSR while admitted. Addendum entered and electronically signed by BETZY HERNANDEZ NP 01/09/19 14:40: Provider Note Provider Note: REPEAT IMAGING OF ABDOMEN DID NOT SHOW ANY SIGNIFICANT PATHOLOGY OTHER THAN MODERATE STOOL BURDEN AND COLONIC GAS. THE PATIENT WAS STARTED ON SCHEDULED SIMETHICONE WELL A ROBUST BOWEL REGIMEN, WHICH HELPS ALLEVIATE HER ABDOMINAL PAIN. ONCE THE PATIENT WAS ABLE TO MOVE HER BOWELS, SHE WAS ABLE TO ADVANCE HER DIET AND TOLERATE SOLID FOODS. UNFORTUNATELY, THE PATIENT EXPERIENCES CHRONIC HIP PAIN. SHE WOULD GREATLY BENEFIT FROM PHYSICAL THERAPY UPON RETURNING TO [facility]. Original Note: General - Admit/Disc Date/PCP Admission Date/Primary Care Provider: 01/03/19 00:48 COLLINS YUAN MD Discharge Date: 01/05/19 - Discharge Diagnosis (1) Diverticulitis Is this a current diagnosis for this admission?: Yes Summary: WBCs remain normal, patient has been afebrile, CT of the abdomen and pelvis was negative for acute processes but could not definitively rule out diverticulitis. The patient was admitted to the medical floor on continuous cardiac telemetry and provided gentle IV fluids. She was empirically placed on p.o. Cipro and flagyl. Surgery was consulted; recommended empiric treatment for diverticulitis and management of constipation. She was placed on a clear liquid diet which was advanced as tolerated. She was provided antiemetics and non-opiate analgesics as needed. At time of discharge, the patient is in stable condition and consuming 100% of her full liquid diet. Recommend continuing to advance slowly as tolerated. Patient's discomfort has been adequately controlled with combination of Tylenol and tramadol. She is discharged to SNF where she is an established resident. Advised that she follow-up with her primary care provider within 1 week. Continue bowel regimen to prevent constipation. Complete her antibiotic therapy. Return to the emergency department as needed for concerning symptoms. (2) Left Lower quadant pains radiating to th Is this a current diagnosis for this admission?: Yes Summary: As above. (3) Atrial fibrillation Is this a current diagnosis for this admission?: Yes Summary: Patient is rate controlled on her outpatient regimen. Not a candidate for chronic anticoagulation due to risk of hemorrhage. (4) Hip pain Is this a current diagnosis for this admission?: Yes Summary: Secondary to fall from a few weeks ago; patient is unclear on exact date (told nurse 2-3 weeks, told me about 5). Can't recall if she had imaging studies done. CT ABD/Pelvis did not reveal abnormal findings. Lumbar, pelvis, left hip x-ray were negative for acute findings; do demonstrate chronic orthopedic changes. Possibly the source of the patient's discomfort. She was provided Lidoderm patches, Tylenol and tramadol for pain. Recommend avoiding narcotics secondary to constipation. (5) Constipation Is this a current diagnosis for this admission?: Yes Summary: Appears to be chronic in nature; likely opiate induced. I have continued her outpatient regiment of twice daily MiraLAX, twice daily senna. I have also added lactulose nightly as needed. - Additional Information Resuscitation Status: Full Code Discharge Diet: As Tolerated, Regular Discharge Activity: Activity As Tolerated, Balance Activity w/Rest, Slowly Increase Activity, Supervised Activity Prescriptions: Ciprofloxacin HCl [Cipro 750 mg Tablet] 750 mg PO Q12A #10 tablet Lactulose [Cephulac Syrup 20 gm/30 ml Udcup] 20 gm PO QHS #10 udc Metronidazole [Flagyl 500 mg Tablet] 500 mg PO Q6 #15 tablet Home Medications: Acetaminophen [Tylenol 325 mg Tablet] 650 mg PO Q6HP PRN 01/03/19 Acetaminophen with Codeine [Tylenol #3 Tablet] 1 each PO Q6HP PRN 01/03/19 Ascorbic Acid [Vitamin C] 500 mg PO DAILY 01/03/19 Atorvastatin Calcium [Lipitor 20 mg Tablet] 20 mg PO QHS 01/03/19 Duloxetine HCl [Cymbalta] 60 mg PO DAILY 01/03/19 Ferrous Sulfate [Feosol 325 mg Tablet] 325 mg PO DAILY 01/03/19 Gabapentin [Neurontin 100 mg Capsule] 100 mg PO Q8 01/03/19 Metoprolol Succinate [Kapspargo Sprinkle] 25 mg PO DAILY 01/03/19 Oxycodone HCl [Oxy-Ir 5 mg Tablet] 5 mg PO Q6HP PRN 01/03/19 Pantoprazole Sodium [Protonix [address] Tablet] 40 mg PO Q6AM 01/03/19 Polyethylene Glycol 3350 [Miralax Powder 17 gm/Packet] 1 packet PO BID 01/03/19 Sennosides [Senna] 17.2 mg PO BID 01/03/19 Tamsulosin HCl [Flomax 0.4 mg Cap.sr] 0.4 mg PO QHS 01/03/19 Acetaminophen [Tylenol 325 mg Tablet] 650 mg PO Q4HP PRN tablet 01/05/19 Ciprofloxacin HCl [Cipro 750 mg Tablet] 750 mg PO Q12A #10 tablet 01/05/19 Lactulose [Cephulac Syrup 20 gm/30 ml Udcup] 20 gm PO QHS #10 udc 01/05/19 Metronidazole [Flagyl 500 mg Tablet] 500 mg PO Q6 #15 tablet 01/05/19 History of Present Illness Admission Date/PCP: 01/03/19 00:48 COLLINS YUAN MD History of Present Illness: Per H&P by Dr. Corcoran: RAHUL SHELBY is a 83 year old female senior care resident with a past medical history of dementia, atrial fibrillation, hypertension, diabetes and opiate dependent chronic pain with constipation. Patient is a very poor historian but admits to dull left lower quadrant pain for at least 24 hours associated with constipation. In the emergency room she is found to have a fever of 102 without leukocytosis or acidosis, CT abdomen suggestive of constipation without obstruction, colitis or diverticulitis. She started on empiric antibiotics for diverticulitis and [facility]. Patient is unable to provide meaningful history but is socially appropriate. Physical Exam Vital Signs: Temp Pulse Resp BP Pulse Ox 99.0 F 77 20 150/62 H 99 01/05/19 11:12 01/05/19 11:12 01/05/19 11:12 01/05/19 11:12 01/05/19 11:12 Intake & Output 01/04/19 01/05/19 01/06/19 06:59 06:59 06:59 Intake Total 2538 200 Output Total 2 200 Balance 2536 0 Weight 86 kg General appearance: PRESENT: no acute distress, obese, well-developed, well- nourished Head exam: PRESENT: atraumatic, normocephalic Eye exam: PRESENT: conjunctiva pink, EOMI, PERRLA. ABSENT: scleral icterus Mouth exam: PRESENT: moist, tongue midline Neck exam: ABSENT: carotid bruit, JVD, lymphadenopathy, thyromegaly Respiratory exam: PRESENT: clear to auscultation cristina, symmetrical, unlabored. ABSENT: rales, rhonchi, wheezes Cardiovascular exam: PRESENT: irregular rhythm, +S1, +S2. ABSENT: diastolic murmur, rubs, systolic murmur Pulses: PRESENT: normal dorsalis pedis pul Vascular exam: PRESENT: normal capillary refill GI/Abdominal exam: PRESENT: normal bowel sounds, soft, tenderness - Left lower quadrant. ABSENT: distended, guarding, mass, organolmegaly, rebound Rectal exam: PRESENT: deferred Extremities exam: PRESENT: tenderness - Left hip and back discomfort. ABSENT: calf tenderness, clubbing, pedal edema Neurological exam: PRESENT: alert, awake, oriented to person, oriented to place, oriented to situation, CN II-XII grossly intact, other - Confusion, fo rgetfulness; pleasant and socially appropriate.. ABSENT: motor sensory deficit Psychiatric exam: PRESENT: appropriate affect, normal mood. ABSENT: homicidal ideation, suicidal ideation Skin exam: PRESENT: dry, erythema - To skinfold, warm. ABSENT: cyanosis, rash Results Laboratory Results: 01/05/19 03:46 01/04/19 05:14 01/05/19 03:46 WBC 5.0 RBC 3.51 L Hgb 9.5 L Hct 28.8 L MCV 82 MCH 27.0 MCHC 32.9 RDW 16.1 H Plt Count 171 Impressions: Abdomen/Pelvis CT 01/02/19 00:00 IMPRESSION: No acute findings. Chest X-Ray 01/02/19 20:16 IMPRESSION: No evidence of acute cardiopulmonary disease. Hip X-Ray 01/04/19 00:00 IMPRESSION: NEGATIVE STUDY OF THE LEFT HIP AND PELVIS. NO RADIOGRAPHIC EVIDENCE OF ACUTE INJURY. Lumbar Spine X-Ray 01/04/19 00:00 IMPRESSION: SURGICAL CHANGES WITH POSTERIOR FUSION, LAMINECTOMY, AND HARDWARE. NO ACUTE FINDINGS. Transfer Plan - Disposition Transfer Plan: Return to [facility] for the patient is an established resident. - Time Spent with Patient Time spent with patient: Less than 30 Minutes Qualifiers - * PATIENT BEING DISCHARGED WITH ANY OF THE FOLLOWING DIAGNOSIS: No Plan Discharge Plan: Discharged to [facility] with the patient is an established resident. Recommend decreasing oxycodone use as able. Advanced bowel protocol to prevent constipation. Complete course of ciprofloxacin and Flagyl for treatment of possible diverticulitis. Drink plenty of fluids, eat as tolerated. Return to the emergency department as needed for concerning symptoms. Time Spent: Greater than 30 Minutes
[2019-01-05] MEDS: KETOROLAC TROMETHAMINE INJ/PF 30 MG/1 ML SDV IV PRN (20:51)
[2019-01-05] MEDS: TAMSULOSIN HCL 0.4 MG CAP.SR.24H PO SCH (21:10)
[2019-01-05] MEDS: ATORVASTATIN CALCIUM 20 MG TABLET PO SCH (21:11)
[2019-01-05] MEDS: LACTULOSE SYRUP 20 GM/30 ML UDCUP PO SCH (21:11)
[2019-01-06] MEDS: CIPROFLOXACIN HCL 750 MG TABLET PO SCH ×2 (05:26→17:09)
[2019-01-06] MEDS: GABAPENTIN 100 MG CAPSULE PO SCH ×3 (05:27→21:11)
[2019-01-06] MEDS: HEPARIN SOD (PORCINE) 5,000 UNIT/ML 1 ML SYRINGE SUBCUT SCH ×3 (05:27→21:19)
[2019-01-06] MEDS: PANTOPRAZOLE SODIUM 40 MG TABLET.DR PO SCH (05:27)
[2019-01-06] MEDS: METRONIDAZOLE 500 MG TABLET PO SCH ×3 (05:27→17:09)
[2019-01-06] MEDS: TRAMADOL HCL 50 MG TABLET PO PRN ×4 (05:27→21:12)
[2019-01-06] MEDS: METOPROLOL SUCCINATE 25 MG TAB.SR.24H PO SCH (09:30)
[2019-01-06] MEDS: DULOXETINE HCL 30 MG CAPSULE.DR PO SCH (09:30)
[2019-01-06] MEDS: FERROUS SULFATE 325 MG TABLET PO SCH (09:30)
[2019-01-06] MEDS: POLYETHYLENE GLYCOL 3350 POWDER 17 GM/1 PACKET PO SCH ×2 (09:31→17:09)
[2019-01-06] MEDS: TAMSULOSIN HCL 0.4 MG CAP.SR.24H PO SCH (21:11)
[2019-01-06] MEDS: LACTULOSE SYRUP 20 GM/30 ML UDCUP PO SCH (21:11)
[2019-01-06] MEDS: ATORVASTATIN CALCIUM 20 MG TABLET PO SCH (21:12)
--- NOTE | 2019-01-06 21:50 | PDOC PROGRESS REPORT ---
Subjective Progress Note for:: 01/06/19 Subjective:: RAHUL SHELBY is a 83 year old female halfway resident with a past medical history of dementia, atrial fibrillation, hypertension, diabetes and opiate dependent chronic pain with constipation who was admitted early this morning by the Victim Advocate for diverticulitis. The patient was seen this morning on rounds. She is resting in bed on room air. The patient states she is tolerating her clear liquid diet but does not have much of an appetite. She endorses post-prandial LUQ & LLQ abdominal pain and nausea. Laboratory studies this morning are relatively benign. Abdomen is S/ND and (+) TTP in LUQ and LLQ. Concerned about patient's symptomology and lack of ability to advance diet over [address] to [address] transfer to SNF on hold. Reason For Visit: DIVERTICULITIS ABD PAIN Physical Exam Vital Signs: Temp Pulse Resp BP Pulse Ox 98.3 F 72 18 124/56 L 95 01/06/19 19:21 01/06/19 19:21 01/06/19 19:21 01/06/19 19:21 01/06/19 19:21 Intake & Output 01/05/19 01/06/19 01/07/19 06:59 06:59 06:59 Intake Total 200 819 Output Total 200 550 350 Balance 0 -550 469 Weight 82.7 kg General appearance: PRESENT: morbidly obese Head exam: PRESENT: atraumatic Eye exam: PRESENT: conjunctiva pink, PERRLA Mouth exam: PRESENT: moist, tongue midline Neck exam: PRESENT: full ROM Respiratory exam: PRESENT: clear to auscultation cristina, symmetrical, unlabored Cardiovascular exam: PRESENT: RRR Pulses: PRESENT: normal radial pulses, normal dorsalis pedis pul Vascular exam: PRESENT: normal capillary refill GI/Abdominal exam: PRESENT: normal bowel sounds, soft, tenderness - LUQ and LLQ. ABSENT: distended, firm, rigid Rectal exam: PRESENT: deferred Extremities exam: PRESENT: full ROM Musculoskeletal exam: PRESENT: ambulatory - with assistance, full ROM Neurological exam: PRESENT: alert, awake, oriented to person, oriented to place, oriented to time, oriented to situation Psychiatric exam: PRESENT: appropriate affect Skin exam: PRESENT: dry, intact, normal color Results Laboratory Results: 01/05/19 03:46 01/04/19 05:14 Impressions: Abdomen/Pelvis CT 01/02/19 00:00 IMPRESSION: No acute findings. Chest X-Ray 01/02/19 20:16 IMPRESSION: No evidence of acute cardiopulmonary disease. Hip X-Ray 01/04/19 00:00 IMPRESSION: NEGATIVE STUDY OF THE LEFT HIP AND PELVIS. NO RADIOGRAPHIC EVIDENCE OF ACUTE INJURY. Lumbar Spine X-Ray 01/04/19 00:00 IMPRESSION: SURGICAL CHANGES WITH POSTERIOR FUSION, LAMINECTOMY, AND HARDWARE. NO ACUTE FINDINGS. Status: Imported from PACS Assessment and Plan - Diagnosis (1) Diverticulitis Is this a current diagnosis for this admission?: Yes Plan: On a clear liquid diet; is not tolerating very well. Patient experiences post- prandial nausea and abdominal pain Continue empiric p.o. Cipro and flagyl. Antiemetics and anagesics as needed. If patient's abdominal pain does not improve, consider Re-CT Abd/Pelvis (2) Atrial fibrillation Is this a current diagnosis for this admission?: Yes Plan: Rate controlled continue outpatient regiment. Patient is too high of risk for chronic anticoagulation. Telemetry monitoring. (3) Hip pain Qualifiers: Laterality: left Qualified Code(s): M25.552 - Pain in left hip Is this a current diagnosis for this admission?: Yes Plan: Secondary to fall from a few weeks ago; patient is unclear on exact date (told nurse 2-3 weeks, told me about 5). CT ABD/Pelvis did not reveal abnormal findings. Will obtain lumbar, pelvic, and left hip xray. Lidoderm patches and tramadol for pain. Avoid narcotics secondary to constipation. (4) Constipation Is this a current diagnosis for this admission?: Yes Plan: Appears to be chronic in nature; likely opiate induced. BID MiraLAX, BID senna PRN lactulose QHS - Time Time Spent with patient: 15-24 minutes Medications reviewed and adjusted accordingly: Yes Anticipated discharge: Home - Inpatient Certification Based on my medical assessment, after consideration of the patient's comorbidities, presenting symptoms, or acuity I expect that the services needed warrant INPATIENT care.: Yes I certify that my determination is in accordance with my understanding of Medicare's requirements for reasonable and necessary INPATIENT services [42 CFR 412.3e].: Yes Medical Necessity: Risk of Complication if Not Cared For in Hospital
[2019-01-07] MEDS: METRONIDAZOLE 500 MG TABLET PO SCH ×5 (00:34→23:52)
[2019-01-07] MEDS: CIPROFLOXACIN HCL 750 MG TABLET PO SCH ×2 (06:04→17:10)
[2019-01-07] MEDS: HEPARIN SOD (PORCINE) 5,000 UNIT/ML 1 ML SYRINGE SUBCUT SCH ×3 (06:05→21:12)
[2019-01-07] MEDS: PANTOPRAZOLE SODIUM 40 MG TABLET.DR PO SCH (06:06)
[2019-01-07] MEDS: GABAPENTIN 100 MG CAPSULE PO SCH ×3 (06:06→21:13)
[2019-01-07] MEDS: TRAMADOL HCL 50 MG TABLET PO PRN ×3 (06:07→21:13)
[2019-01-07 07:52] LABS: HEMATOCRIT 29.6 % (36.0-47.0); HEMOGLOBIN 9.5 g/dL (12.0-15.5); MEAN CORPUSCULAR HEMOGLOBIN 26.5 pg (27.0-33.4); MEAN CORPUSCULAR HGB CONC 32.2 g/dL (32.0-36.0); MEAN CORPUSCULAR VOLUME 82 fl (80-97); PLATELET COUNT 221 10^3/uL (150-450); RED BLOOD COUNT 3.59 10^6/uL (3.72-5.28); WHITE BLOOD COUNT 4.8 10^3/uL (4.0-10.5)
[2019-01-07 08:11] LABS: ALANINE AMINOTRANSFERASE 32 U/L (9-52); ALBUMIN 3.1 g/dL (3.5-5.0); ALKALINE PHOSPHATASE 108 U/L (38-126); ANION GAP 10 (5-19); ASPARTATE AMINO TRANSFERASE 35 U/L (14-36); BILIRUBIN,DIRECT 0.2 mg/dL (0.0-0.4); BILIRUBIN,TOTAL 0.2 mg/dL (0.2-1.3); BLOOD UREA NITROGEN 14 mg/dL (7-20); CARBON DIOXIDE 27 mmol/L (22-30); CHLORIDE 104 mmol/L (98-107); GLUCOSE 104 mg/dL (75-110); PHOSPHORUS 3.8 mg/dL (2.5-4.5); SODIUM 140.7 mmol/L (137-145); TOTAL PROTEIN 6.1 g/dL (6.3-8.2)
[2019-01-07] MEDS: METOPROLOL SUCCINATE 25 MG TAB.SR.24H PO SCH (09:10)
[2019-01-07] MEDS: POLYETHYLENE GLYCOL 3350 POWDER 17 GM/1 PACKET PO SCH ×2 (09:10→17:08)
[2019-01-07] MEDS: DULOXETINE HCL 30 MG CAPSULE.DR PO SCH (09:10)
[2019-01-07] MEDS: FERROUS SULFATE 325 MG TABLET PO SCH (09:10)
[2019-01-07] MEDS ORDERED: MAGNESIUM HYDROXIDE SUSP 30 ML UDCUP PO PRN (09:14)
[2019-01-07] MEDS: SENNOSIDES/DOCUSATE 8.6-50 MG 1 EACH TABLET PO SCH ×2 (12:08→17:04)
--- NOTE | 2019-01-07 15:15 | PDOC PROGRESS REPORT ---
Subjective Progress Note for:: 01/07/19 Subjective:: RAHUL SHELBY is a 83 year old female longterm resident with a past medical history of dementia, atrial fibrillation, hypertension, diabetes and opiate dependent chronic pain with constipation who was admitted early this morning by the [employer] for diverticulitis. The patient was seen this morning on rounds. She is resting in bed on room air. Patient is not eating much of her clear liquid diet. (+) LUQ & LLQ abdominal pain. Abdomen is S/ND and (+) TTP in LUQ and LLQ. There has been no progress in the patient's clinical picture - her abdominal exam is still significant for left-sided tenderness and she is unable to tolerate p.o. diet. Plan for CT ab domen/pelvis today. Reason For Visit: DIVERTICULITIS ABD PAIN Physical Exam Vital Signs: Temp Pulse Resp BP Pulse Ox 98.3 F 70 16 132/54 H 99 01/07/19 08:26 01/07/19 08:26 01/07/19 08:26 01/07/19 08:26 01/07/19 08:26 Intake & Output 01/06/19 01/07/19 01/08/19 06:59 06:59 06:59 Intake Total 819 118 Output Total 550 800 100 Balance -550 19 18 Weight 82.7 kg 84.1 kg General appearance: PRESENT: morbidly obese Eye exam: PRESENT: conjunctiva pink, PERRLA Teeth exam: PRESENT: poor dentation Respiratory exam: PRESENT: clear to auscultation cristina, symmetrical, unlabored Cardiovascular exam: PRESENT: +S1, +S2 Pulses: PRESENT: normal radial pulses, normal dorsalis pedis pul Vascular exam: PRESENT: normal capillary refill GI/Abdominal exam: PRESENT: normal bowel sounds, soft, tenderness - Left upper and lower quadrant. ABSENT: distended, firm Rectal exam: PRESENT: deferred Extremities exam: PRESENT: full ROM Musculoskeletal exam: ABSENT: ambulatory - Able to walk with a great deal of assistance, full ROM Neurological exam: PRESENT: alert, awake, oriented to person, oriented to place, oriented to time, oriented to situation Psychiatric exam: PRESENT: appropriate affect Skin exam: PRESENT: dry, intact, normal color Results Laboratory Results: 01/07/19 06:59 01/07/19 06:59 01/07/19 01/07/19 06:59 06:59 WBC 4.8 RBC 3.59 L Hgb 9.5 L Hct 29.6 L MCV 82 MCH 26.5 L MCHC 32.2 RDW 16.0 H Plt Count 221 Sodium 140.7 Potassium 4.0 Chloride 104 Carbon Dioxide 27 Anion Gap 10 BUN 14 Creatinine 0.63 Est GFR ( Amer) > 60 Est GFR (Non-Af Amer) > 60 Glucose 104 Calcium 10.0 Phosphorus 3.8 Magnesium 1.7 Total Bilirubin 0.2 AST 35 ALT 32 Alkaline Phosphatase 108 Total Protein 6.1 L Albumin 3.1 L Impressions: Abdomen/Pelvis CT 01/02/19 00:00 IMPRESSION: No acute findings. Chest X-Ray 01/02/19 20:16 IMPRESSION: No evidence of acute cardiopulmonary disease. Hip X-Ray 01/04/19 00:00 IMPRESSION: NEGATIVE STUDY OF THE LEFT HIP AND PELVIS. NO RADIOGRAPHIC EVIDENCE OF ACUTE INJURY. Lumbar Spine X-Ray 01/04/19 00:00 IMPRESSION: SURGICAL CHANGES WITH POSTERIOR FUSION, LAMINECTOMY, AND HARDWARE. NO ACUTE FINDINGS. Status: Imported from PACS Assessment and Plan - Diagnosis (1) Diverticulitis Is this a current diagnosis for this admission?: Yes Plan: On a clear liquid diet; is not tolerating very well. Patient experiences post- prandial nausea and abdominal pain Continue empiric p.o. flagyl., completed course of PO cipro Antiemetics and anagesics as needed. Plan to Re-CT Abd/Pelvis since patient's clinical picture is not improving (2) Atrial fibrillation Is this a current diagnosis for this admission?: Yes Plan: Rate controlled continue outpatient regiment. Patient is too high of risk for chronic anticoagulation. Telemetry monitoring. (3) Hip pain Qualifiers: Laterality: left Qualified Code(s): M25.552 - Pain in left hip Is this a current diagnosis for this admission?: Yes Plan: Secondary to fall from a few weeks ago; patient is unclear on exact date (told nurse 2-3 weeks, told me about 5). Initial CT ABD/Pelvis did not reveal abnormal findings. Will obtain lumbar, pelvic, and left hip xray. Lidoderm patches and tramadol for pain. Avoid narcotics secondary to constipation. (4) Constipation Is this a current diagnosis for this admission?: Yes Plan: Appears to be chronic in nature; likely opiate induced. BID MiraLAX, BID senna PRN milk of magnesia PRN lactulose QHS - Time Time Spent with patient: 15-24 minutes Medications reviewed and adjusted accordingly: Yes Anticipated discharge: Home - Inpatient Certification Based on my medical assessment, after consideration of the patient's comorbidities, presenting symptoms, or acuity I expect that the services needed warrant INPATIENT care.: Yes I certify that my determination is in accordance with my understanding of Medicare's requirements for reasonable and necessary INPATIENT services [42 CFR 412.3e].: Yes Medical Necessity: Risk of Complication if Not Cared For in Hospital
--- NOTE | 2019-01-07 15:25 | RADIOLOGY REPORT (SQ) ---
EXAM DESCRIPTION: CT ABD/PELVIS WITH IV ONLY COMPLETED DATE/TIME: 01/07/2019 2:22 pm REASON FOR STUDY: L sided abdominal pain COMPARISON: 01/04/2019 TECHNIQUE: CT scan of the abdomen and pelvis performed using helical scanning technique with dynamic intravenous contrast injection. No oral contrast. Images reviewed with lung, soft tissue, and bone windows. Reconstructed coronal and sagittal MPR images reviewed. Delayed images for evaluation of the urinary system also acquired. All images stored on PACS. All CT scanners at this facility use dose modulation, iterative reconstruction, and/or weight based d osing when appropriate to reduce radiation dose to as low as reasonably achievable (ALARA). [facility]: Dose Right [facility]: CareDose [facility]: Dose Right [facility]: Teradose 4D [facility]: [employer] CONTRAST TYPE AND DOSE: contrast/concentration: Isovue 350.00 mg/ml; Total Contrast Delivered: 96.0 ml; Total Saline Delivered: 59.0 ml RENAL FUNCTION: Not recorded here. Refer to invasive cardiovascular technologist's notes. RADIATION DOSE: CT Rad equipment meets quality standard of care and radiation dose reduction techniq ues were employed. CTDIvol: 12.4 - 14.2 mGy. DLP: 2051 mGy-cm.. LIMITATIONS: None. FINDINGS: LOWER CHEST: No significant findings. No nodules or infiltrates. LIVER: Normal size. No masses. No dilated ducts. SPLEEN: Normal size. No focal lesions. PANCREAS: No masses. No significant calcifications. No adjacent inflammation or peripancreatic fluid collections. Pancreatic duct not dilated. GALLBLADDER: Surgically absent. ADRENAL GLANDS: No significant masses or asymmetry. RIGHT KIDNEY AND URETER: No solid masses. No significant calcifications. No hydronephrosis or hyd roureter. LEFT KIDNEY AND URETER: Absent. AORTA AND VESSELS: No aneurysm. No dissection. Renal arteries, SMA, celiac without stenosis. RETROPERITONEUM: No retroperitoneal adenopathy, hemorrhage or masses. BOWEL AND PERITONEAL CAVITY: Contrast in the distal colon and rectum. No masses or inflammatory flores ges. No free fluid or peritoneal masses. APPENDIX: Normal. PELVIS: No mass. No free fluid. Normal bladder. ABDOMINAL WALL: No masses. No hernias. BONES: Posterior rods from L4-S1. There is a screw through the left pedicle at L2. OTHER: No other significant finding. IMPRESSION: No acute findings in the abdomen or pelvis. Absent left kidney. Osseous findings as de scribed. TECHNICAL DOCUMENTATION: JOB ID: [id number] Quality ID # [id number]: Final reports with documentation of one or more dose reduction techniques (e.g., Au tomated exposure control, adjustment of the mA and/or kV according to patient size, use of iterative reconstruction technique) 2010 [facility] [place]- All Rights Reserved Reading location - IP/workstation name: [email or web address]
[2019-01-07] MEDS: KETOROLAC TROMETHAMINE INJ/PF 30 MG/1 ML SDV IV PRN (16:49)
[2019-01-07] MEDS: TAMSULOSIN HCL 0.4 MG CAP.SR.24H PO SCH (21:11)
[2019-01-07] MEDS: LACTULOSE SYRUP 20 GM/30 ML UDCUP PO SCH (21:11)
[2019-01-07] MEDS: ATORVASTATIN CALCIUM 20 MG TABLET PO SCH (21:14)
[2019-01-08] MEDS: PANTOPRAZOLE SODIUM 40 MG TABLET.DR PO SCH (06:18)
[2019-01-08] MEDS: METRONIDAZOLE 500 MG TABLET PO SCH ×3 (06:18→17:20)
[2019-01-08] MEDS: GABAPENTIN 100 MG CAPSULE PO SCH ×3 (06:18→22:30)
[2019-01-08] MEDS: CIPROFLOXACIN HCL 750 MG TABLET PO SCH ×2 (06:19→17:21)
[2019-01-08] MEDS: TRAMADOL HCL 50 MG TABLET PO PRN ×2 (06:19→14:19)
[2019-01-08] MEDS: HEPARIN SOD (PORCINE) 5,000 UNIT/ML 1 ML SYRINGE SUBCUT SCH ×3 (06:20→22:32)
[2019-01-08] MEDS: METOPROLOL SUCCINATE 25 MG TAB.SR.24H PO SCH (10:48)
[2019-01-08] MEDS: POLYETHYLENE GLYCOL 3350 POWDER 17 GM/1 PACKET PO SCH ×2 (10:48→17:21)
[2019-01-08] MEDS: DULOXETINE HCL 30 MG CAPSULE.DR PO SCH (10:48)
[2019-01-08] MEDS: FERROUS SULFATE 325 MG TABLET PO SCH (10:48)
[2019-01-08] MEDS: SIMETHICONE 80 MG TAB.CHEW PO SCH ×4 (10:48→22:30)
[2019-01-08] MEDS: SENNOSIDES/DOCUSATE 8.6-50 MG 1 EACH TABLET PO SCH ×2 (10:48→17:21)
[2019-01-08] MEDS: KETOROLAC TROMETHAMINE INJ/PF 30 MG/1 ML SDV IV PRN ×2 (12:50→20:38)
--- NOTE | 2019-01-08 20:53 | PDOC PROGRESS REPORT ---
Subjective Progress Note for:: 01/08/19 Subjective:: RAHUL SHELBY is a 83 year old female group home resident with a past medical history of dementia, atrial fibrillation, hypertension, diabetes and opiate dependent chronic pain with constipation who was admitted early this morning by the [facility] for diverticulitis. The patient was seen this morning on rounds. She is resting in bed on room air. Abdomen is S/ND and (+) TTP in LUQ and LLQ. CT abdomen/pelvis was relatively normal, no significant pathology. A fair amount of gas was seen in the colon, nursing staff reports the patient had a bowel movement today. Patient endorses passing gas. Plan to start scheduled simethicone today. Will advance diet to s olids today and see how she tolerates. Plan to send back to [facility] in 24-48 hours. Reason For Visit: DIVERTICULITIS ABD PAIN Physical Exam Vital Signs: Temp Pulse Resp BP Pulse Ox 98.0 F 74 17 128/50 H 97 01/08/19 19:38 01/08/19 19:38 01/08/19 19:38 01/08/19 19:38 01/08/19 19:38 Intake & Output 01/07/19 01/08/19 01/09/19 06:59 06:59 06:59 Intake Total 819 710 708 Output Total 800 700 450 Balance 19 10 258 Weight 84.1 kg 86.5 kg General appearance: PRESENT: morbidly obese Eye exam: PRESENT: PERRLA Mouth exam: PRESENT: moist, tongue midline Teeth exam: PRESENT: poor dentation Neck exam: PRESENT: full ROM Respiratory exam: PRESENT: clear to auscultation cristina, symmetrical, unlabored Cardiovascular exam: PRESENT: RRR Pulses: PRESENT: normal radial pulses Vascular exam: PRESENT: normal capillary refill GI/Abdominal exam: PRESENT: normal bowel sounds, soft, tenderness - LUQ and LLQ. ABSENT: distended Rectal exam: PRESENT: deferred Extremities exam: PRESENT: full ROM Musculoskeletal exam: PRESENT: full ROM. ABSENT: ambulatory Neurological exam: PRESENT: alert, awake, oriented to person, oriented to place, oriented to time. ABSENT: oriented to situation Psychiatric exam: PRESENT: appropriate affect Skin exam: PRESENT: dry, intact, normal color Results Laboratory Results: 01/07/19 06:59 01/07/19 06:59 01/02/19 19:23 Blood Blood Culture - Final NO GROWTH IN 5 DAYS 01/02/19 17:00 Blood Blood Culture - Final NO GROWTH IN 5 DAYS Impressions: Chest X-Ray 01/02/19 20:16 IMPRESSION: No evidence of acute cardiopulmonary disease. Hip X-Ray 01/04/19 00:00 IMPRESSION: NEGATIVE STUDY OF THE LEFT HIP AND PELVIS. NO RADIOGRAPHIC EVIDENCE OF ACUTE INJURY. Lumbar Spine X-Ray 01/04/19 00:00 IMPRESSION: SURGICAL CHANGES WITH POSTERIOR FUSION, LAMINECTOMY, AND HARDWARE. NO ACUTE FINDINGS. Abdomen/Pelvis CT 01/07/19 11:26 IMPRESSION: No acute findings in the abdomen or pelvis. Absent left kidney. Osseous findings as described. Status: Imported from PACS Assessment and Plan - Diagnosis (1) Diverticulitis Is this a current diagnosis for this admission?: Yes Plan: On a clear liquid diet; tolerating very well, will advance to solid foods today. Continue empiric p.o. flagyl., completed course of PO cipro Antiemetics and anagesics as needed. Repeat CT Abd/Pelvis done yesterday does not show significant pathology, only stool burden and gas Added simethiconeto regimen. Continue bowel regimen (2) Atrial fibrillation Is this a current diagnosis for this admission?: Yes Plan: Rate controlled continue outpatient regiment. Patient is too high of risk for chronic anticoagulation. Telemetry monitoring. (3) Hip pain Qualifiers: Laterality: left Qualified Code(s): M25.552 - Pain in left hip Is this a current diagnosis for this admission?: Yes Plan: Secondary to fall from a few weeks ago; patient is unclear on exact date (told nurse 2-3 weeks, told me about 5). Initial CT ABD/Pelvis did not reveal abnormal findings. Lidoderm patches and tramadol for pain. Avoid narcotics secondary to constipation (4) Constipation Is this a current diagnosis for this admission?: Yes Plan: Appears to be chronic in nature; likely opiate induced. BM this morning BID MiraLAX, BID senna PRN milk of magnesia PRN lactulose QHS (5) Opiate dependence Qualifiers: Substance use status: uncomplicated Qualified Code(s): F11.20 - Opioid dependence, uncomplicated Is this a current diagnosis for this admission?: Yes Plan: Patient was previously receiving Tramadol q4h for pain Pain is out of proportion to physical exam and imaging Concern about assisted Tramadol use contributing to her constipation and abdominal pain Will decrease frequency from q4h to q8h - Time Time Spent with patient: 15-24 minutes Medications reviewed and adjusted accordingly: Yes Anticipated discharge: SNF Within: within 48 hours - Inpatient Certification Based on my medical assessment, after consideration of the patient's comorbidities, presenting symptoms, or acuity I expect that the services needed warrant INPATIENT care.: Yes I certify that my determination is in accordance with my understanding of Medicare's requirements for reasonable and necessary INPATIENT services [42 CFR 412.3e].: Yes Medical Necessity: Risk of Complication if Not Cared For in Hospital
[2019-01-08] MEDS: LACTULOSE SYRUP 20 GM/30 ML UDCUP PO SCH (22:30)
[2019-01-08] MEDS: ATORVASTATIN CALCIUM 20 MG TABLET PO SCH (22:31)
[2019-01-08] MEDS: TAMSULOSIN HCL 0.4 MG CAP.SR.24H PO SCH (22:45)
[2019-01-09] MEDS: METRONIDAZOLE 500 MG TABLET PO SCH ×4 (00:56→18:27)
[2019-01-09] MEDS: HEPARIN SOD (PORCINE) 5,000 UNIT/ML 1 ML SYRINGE SUBCUT SCH ×3 (05:45→21:58)
[2019-01-09] MEDS: CIPROFLOXACIN HCL 750 MG TABLET PO SCH ×2 (05:45→18:28)
[2019-01-09] MEDS: TRAMADOL HCL 50 MG TABLET PO PRN (05:46)
[2019-01-09] MEDS: GABAPENTIN 100 MG CAPSULE PO SCH ×3 (05:47→21:59)
[2019-01-09] MEDS: PANTOPRAZOLE SODIUM 40 MG TABLET.DR PO SCH (05:47)
[2019-01-09] MEDS: DULOXETINE HCL 30 MG CAPSULE.DR PO SCH (10:55)
[2019-01-09] MEDS: SIMETHICONE 80 MG TAB.CHEW PO SCH ×4 (10:56→21:59)
[2019-01-09] MEDS: METOPROLOL SUCCINATE 25 MG TAB.SR.24H PO SCH (10:57)
[2019-01-09] MEDS: SENNOSIDES/DOCUSATE 8.6-50 MG 1 EACH TABLET PO SCH ×2 (10:58→18:27)
[2019-01-09] MEDS: FERROUS SULFATE 325 MG TABLET PO SCH (10:58)
[2019-01-09] MEDS: POLYETHYLENE GLYCOL 3350 POWDER 17 GM/1 PACKET PO SCH ×2 (10:58→18:27)
[2019-01-09] MEDS: OXYCODONE HCL IR 5 MG TABLET PO PRN ×2 (13:40→21:59)
[2019-01-09] MEDS ORDERED: OXYCODONE HCL IR 5 MG TABLET ONE (13:40)
[2019-01-09] MEDS: ACETAMINOPHEN 325 MG TABLET PO PRN (20:49)
[2019-01-09 21:57] VITALS: BP 111/42
[2019-01-09] MEDS: TAMSULOSIN HCL 0.4 MG CAP.SR.24H PO SCH (21:59)
[2019-01-09] MEDS: ATORVASTATIN CALCIUM 20 MG TABLET PO SCH (21:59)
[2019-01-09] MEDS: LACTULOSE SYRUP 20 GM/30 ML UDCUP PO SCH (22:00)
== END 2019-01-09 22:14 | DRG 392 ==
LOC: ER 15:36 → EH 01-03 00:48 → 3W 01-03 01:53
PROVIDERS: ADMIT Internal Medicine; ATTEND Internal Medicine
PROC: 3E0F73Z Introduction of Anti-inflammatory into Respiratory Tract, Via Natural or Artificial Opening (ICD-10-PCS; principal; 2019-01-03)
DX: K57.32 Diverticulitis of large intestine without perforation or abscess without bleeding (principal); F11.20 Opioid dependence, uncomplicated; K59.09 Other constipation; I48.0 Paroxysmal atrial fibrillation; F03.90 Unspecified dementia, unspecified severity, without behavioral disturbance, psychotic disturbance, mood disturbance, and anxiety; I10 Essential (primary) hypertension; E11.9 Type 2 diabetes mellitus without complications; G89.29 Other chronic pain; E78.5 Hyperlipidemia, unspecified; K21.9 Gastro-esophageal reflux disease without esophagitis; D64.9 Anemia, unspecified; M25.552 Pain in left hip; K59.03 Drug induced constipation; T40.605A Adverse effect of unspecified narcotics, initial encounter; E66.01 Morbid (severe) obesity due to excess calories; Z90.710 Acquired absence of both cervix and uterus; Z85.41 Personal history of malignant neoplasm of cervix uteri; Z90.49 Acquired absence of other specified parts of digestive tract; Z79.899 Other long term (current) drug therapy; Z79.01 Long term (current) use of anticoagulants; Z79.891 Long term (current) use of opiate analgesic; Z91.81 History of falling
CPT/HCPCS: 36415; 71045; 72110; 74177; 80048; 80053; 81001; 83605; 83690; 83735; 84100; 85025; 85027; 85610; 87040; 93005; 93010; 96361; 96365; 96368; 96375; 96376; 99291; J1644; J1885; J1956; J2270; J2405; J3490; J7030; J7040

== ENCOUNTER → 2019-01-26 | Outpatient (CLI) | payer MEDICARE, MEDICAID ==
--- NOTE | 2019-01-26 15:57 | RADIOLOGY REPORT (SQ) ---
EXAM DESCRIPTION: CT RT LOWER EXTREMITY WITHOUT COMPLETED DATE/TIME: 01/26/2019 3:41 pm REASON FOR STUDY: M25.551 PAIN IN RIGHT HIP M70.61 TROCHANTERIC BURSITIS, RIGHT HIP M25.551 PAIN I N RIGHT HIP COMPARISON: None. TECHNIQUE: CT scan of the right hip performed without intravenous or oral contrast. Images reviewed with soft tissue and bone windows. Reconstructed coronal and sagittal MPR images reviewed. All sultana ges stored on PACS. All CT scanners at this facility use dose modulation, iterative reconstruction, and/or weight based d osing when appropriate to reduce radiation dose to as low as reasonably achievable (ALARA). [facility]: Dose Right [facility]: CareDose [facility]: Dose Right [facility]: Teradose 4D [facility]: OutboundEngine RADIATION DOSE: CT Rad equipment meets quality standard of care and radiation dose reduction techniq ues were employed. CTDIvol: 17.1 mGy. DLP: 536 mGy-cm. mGy. LIMITATIONS: None. 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 No evidence of AVN. No obvious bursal fluid collection. No hematoma. IMPRESSION: Moderate degenerative changes. No acute findings. TECHNICAL DOCUMENTATION: JOB ID: [id number] Quality ID # [id number]: Final reports with documentation of one or more dose reduction techniques (e.g., Au tomated exposure control, adjustment of the mA and/or kV according to patient size, use of iterative reconstruction technique) 2010 [employer]- All Rights Reserved Reading location - IP/workstation name: [email or web address]
== END ==
LOC: RAD 15:19
PROVIDERS: ATTEND Family Medicine
DX: M25.551 Pain in right hip (principal); M16.11 Unilateral primary osteoarthritis, right hip; M70.61 Trochanteric bursitis, right hip; N39.0 Urinary tract infection, site not specified